=== PATIENT | female | born 1995 | race Caucasian/White ===

== ENCOUNTER 2024-01-19 13:11 | Outpatient (CLI) | payer OTHER ==
--- NOTE | 2024-01-19 15:18 | Ultrasound Report ---
PROCEDURE: Pelvic w/Transvaginal INDICATIONS: EXCESSIVE AND FREQUENT MENSTRATION TECHNIQUE: Real-time scanning was performed of the pelvic organs, with image documentation. Additional endovagi nal scanning was necessary due to incomplete visualization of the adnexal and endometrial structures by transabdominal scanning. COMPARISON: None. FINDINGS: Uterus: Uterus is anteverted and normal in size at 7.2 x 3.1 x 3.9 cm. The myometrium is homogeneou s. The endometrium measures 2 mm in combined thickness. Small amount of fluid noted in the cervical canal. Ovaries: The right ovary measures 2.8 x 2.1 x 2.2 cm, with a calculated ovarian volume of 6.8 cc. T he left ovary measures 2.1 x 1.6 x 1.6 cm, with a calculated ovarian volume of 2.8 cc. The ovaries h ave a normal sonographic appearance. Less than 12 follicles can be seen in each ovary. No adnexal m asses are seen. No cystic lesions measuring greater than 3 cm. There is a 1.9 cm dominant follicle in the right ovary. Other: No pathologic free abdominal or pelvic fluid. IMPRESSION: Unremarkable sonographic evaluation of the pelvis. No abnormalities identified to explain patient's a bnormal uterine bleeding. Reviewed by: Jeremy Acharya MD on 01/19/2024 3:16 PM PST Approved by: Jeremy Acharya MD on 01/19/2024 3:16 PM PST Station ID: [id number]
== END 2024-01-19 13:12 | disposition home or self-care (01) ==
LOC: DI 13:11
PROVIDERS: ATTEND Physician Assistant
DX: N92.0 Excessive and frequent menstruation with regular cycle (principal)